=== PATIENT | male | born 1980 | race Caucasian/White ===

== ENCOUNTER 2020-08-03 13:05 | Outpatient (CLI) | payer OTHER, SELFPAY | END 2020-08-03 13:06 | disposition home or self-care (01) | LOC: ANHCOVIDVC 13:05 | PROVIDERS: PCP Family Medicine | DX: Z23 Encounter for immunization (principal) | CPT/HCPCS: 0001A; 91300 ==

== ENCOUNTER 2020-08-24 12:58 | Outpatient (CLI) | payer OTHER, SELFPAY | END 2020-08-24 12:59 | disposition home or self-care (01) | LOC: ANHCOVIDVC 12:58 | PROVIDERS: PCP Family Medicine | DX: Z23 Encounter for immunization (principal) | CPT/HCPCS: 0002A; 91300 ==

== ENCOUNTER 2023-08-23 19:21 | Emergency (ER) | payer OTHER, SELFPAY ==
--- NOTE | ~2023-08-23 | XR_ITS ---
EXAMINATION: XR chest 2V DATE: 08/23/2023 19:48 INDICATION: Chest pain radiating to the left arm TECHNIQUE: PA and lateral views of the chest were obtained. COMPARISON: None FINDINGS: The lungs are clear with no focal airspace opacities, pulmonary edema, pleural effusion or pneumothor ax. The cardiomediastinal silhouette is normal. Mild thoracic spondylosis. IMPRESSION: 1. No acute cardiopulmonary disease. Reviewed, dictated and finalized at location A.
--- NOTE | 2023-08-23 19:30 | ECG_ITS ---
Measurements Intervals [place] Rate: 66 P: 22 OK: 146 QRS: 21 QRSD: 89 T: 37 QT: 410 QTc: 432 Interpretive Statements SINUS RHYTHM NO PREVIOUS ECG AVAILABLE FOR COMPARISON Electronically Signed On 08-24-2023 11:01:00 CDT by John Montesinos M.D.
[2023-08-23] MEDS: ASPIRIN 81 MG CHEWABLE TABLET 324 MG PO (19:43)
[2023-08-23 19:44] VITALS: BP 146/102; PULSE 81; RESP 14; TEMP 36.5; O2SAT 100
[2023-08-23 19:46] LABS: Basophils Absolute Auto 0.1 K/mm3 (0.0-0.1); Basophils Percent Auto 0.8 % (0.2-1.2); Eosinophils Absolute Auto 0.2 K/mm3 (0-0.3); Hematocrit 44.6 % (42.0-52.0); Hemoglobin 15.2 g/dL (14.0-18.0); Immature Granulocyte Absolute 0.02 K/mm3 (0.00-0.031); Immature Granulocyte Percent A 0.3 % (0-0.5); Lymphocytes Absolute Auto 2.16 K/mm3 (0.9-3.2); Lymphocytes Percent Auto 28.6 % (18.3-44.2); Mean Corpuscular HGB Conc 34.1 g/dl (32-36); Mean Corpuscular Hemoglobin 30.8 pg (26-34); Mean Corpuscular Volume 90.5 fl (80-100); Mean Platelet Volume 9.9 fl (7.4-10.4); Monocytes Absolute Auto 0.6 K/mm3 (0.1-0.6); Monocytes Percent Auto 8.2 % (2.6-8.5); Neutrophils Absolute Auto 4.5 K/mm3 (1.3-6.7); Neutrophils Percent Auto 60.1 % (45.5-73.1); Platelet Count Result 276 k/mm3 (150-375); Red Blood Count 4.93 M/mm3 (4.6-6.20); Red Cell Distribution Width 12.8 % (11.5-14.5); White Blood Count 7.5 K/mm3 (4.5-10.0)
[2023-08-23 19:57] LABS: INR 1.1; Prothrombin Time 14.2 Seconds (11.1-14.7)
[2023-08-23 19:58] LABS: Partial Thromboplastin Time 27.6 Seconds (22.3-36.8)
[2023-08-23 20:03] LABS: Alanine Aminotransferase 35 U/L (6-50); Albumin Level 4.6 g/dL (3.5-5.1); Alkaline Phosphatase 68 U/L (38-126); Anion Gap 6 mmol/L (4-12); Aspartate Amino Transferase 41 U/L (17-59); Bilirubin,Total 0.5 mg/dL (0.2-1.3); Blood Urea Nitrogen 14 mg/dL (9-20); Calcium 9.7 mg/dL (8.4-10.2); Carbon Dioxide 29 mmol/L (22-30); Chloride 103 mmol/L (98-107); Estimated CRCL calculation 70 ml/min; Estimated Glomerular Filt Rate > 60; Glucose 98 mg/dL (65-110); Lipase 362 U/L (23-300); Potassium 3.6 mmol/L (3.4-5.0); Sodium 138 mmol/L (137-145)
[2023-08-23 20:14] LABS: Troponin I < 0.012 ng/mL (0.000-0.034)
[2023-08-23 21:14] VITALS: O2SAT 99
[2023-08-23 21:15] VITALS: BP 142/99; PULSE 66; RESP 11; TEMP 36.9; O2SAT 98
--- NOTE | 2023-08-23 21:27 | ED.CHESTPAIN ---
HPI - Chest Pain General Chief Complaint: Chest Pain Stated Complaint: chest pain, numbness in arm Time Seen by Provider: 08/23/23 21:10 History of Present Illness HPI narrative: Patient is a 43-year-old male who presents to the emergency department this evening complaining of intermittent chest pain for the past week. Patient states that he was on vacation in [facility] and recently got. While he was there, he noticed the left-sided chest pain episodes which are intermittent, lasting a few seconds and then subsided. Patient denies any previous similar episodes in the past, denies any family history of cardiovascular disease and denies any history that he has any acute coronary syndrome. patient admits that while he was, his diet was not good and he did drink a lot of alcohol, otherwise no recent changes. Patient is a runner and states that he ran 4 miles since he got back from [facility] with no issues. He currently denies any additional symptoms at this time. Related Data Allergies Allergy/AdvReac Type Severity Reaction Status Date / Time No Known Allergies Allergy Unverified 01/29/19 16:46 Review of Systems Review of Systems: All systems are reviewed and are negative unless stated otherwise in the HPI. [facility] Family History Family History Mother Hypertension Father Hypertension Social History Social History Smoking status: Never smoker Alcohol intake: current Exam Narrative: General: Alert, awake, afebrile, in no acute distress. HEENT: PERRL, no rhinorrhea, no post nasal drip, oropharynx clear. Neck: Trachea midline, no JVD, no lymphadenopathy. Cardiovascular: Regular rate and rhythm, no murmurs, rubs or gallops, no peripheral edema, intact and equal bilateral radial pulses. Respiratory: Clear to auscultation bilaterally, no tachypnea, no wheezing, no rhonchi, no rubs, no respiratory distress. Abdomen: Soft, nontender, nondistended, no rebound, no guarding, no peritoneal signs. Musculoskeletal: No joint swelling or deformity, normal muscle tone. Skin: No rashes or petechia, no signs of infection. Psychiatric: Alert and oriented, normal behavior and judgment for situation. Neurological: Alert and oriented to person, place, and time. Follows all commands. 5/5 motor strength in the bilateral upper and lower extremity, sensation intact in the bilateral upper and lower extremity, cranial nerves 2-12 grossly intact. No focal deficits, speech is clear and fluent. Course Vital Signs Vital signs: Vital Signs Temperature 97.7 F 08/23/23 19:44 Pulse Rate 81 08/23/23 19:44 Respiratory Rate 14 08/23/23 19:44 Blood Pressure 146/102 H 08/23/23 19:44 Pulse Oximetry 100 08/23/23 19:44 Oxygen Delivery Room Air 08/23/23 19:44 Temperature 98.5 F 08/23/23 21:15 Pulse Rate 58 L 08/23/23 23:12 Respiratory Rate 19 08/23/23 23:12 Blood Pressure 133/95 H 08/23/23 23:12 Pulse Oximetry 97 08/23/23 23:12 Oxygen Delivery Room Air 08/23/23 21:14 MDM - Chest Pain MDM Narrative Medical decision making narrative: The patient was evaluated by myself in the emergency department. History is obtained from patient who is an independent historian and physical exam was performed. External medical records were reviewed at this time. IV was established and pertinent tests were ordered. EKG was obtained which revealed sinus rhythm rate of 66 beats per minute. No ST changes, T wave inversions or evidence of acute ischemia. EKG was independently interpreted by me and is currently pending official cardiology read. Laboratory results obtained revealing an elevated lipase, otherwise no acute process. Two sets of troponins were obtained and both noted to be negative. Patient has no left upper quadrant abdominal pain and is not tender in that region. Imaging studies obtained include
[2023-08-23 23:12] VITALS: BP 133/95; PULSE 58; RESP 19; O2SAT 97
[2023-08-23 23:31] LABS: Troponin I < 0.012 ng/mL (0.000-0.034)
[2023-08-24 00:09] VITALS: BP 136/88; PULSE 61; RESP 15; O2SAT 100
== END 2023-08-24 00:10 | disposition home or self-care (01) ==
PROVIDERS: Emergency Provider Emergency Medicine
DX: R07.89 Other chest pain (principal)
CPT/HCPCS: 36415; 71046; 80053; 83690; 84484; 85025; 85610; 85730; 93005; 99284; A9270